=== PATIENT | female | born 1995 | race African-American/Black ===

== ENCOUNTER 2019-09-07 21:49 | Emergency (ER) | payer SELFPAY ==
[2019-09-07 22:10] VITALS: BP 124/71; BMI 28.6
[2019-09-08] MEDS ORDERED: ACETAMINOPHEN 1000 MG/100 ML VIAL (NON FORMULARY) IVPB ONE (00:01)
[2019-09-08] MEDS ORDERED: SODIUM CHLORIDE 0.9% 500 ML INFUS.BAG IV ONE (00:01)
--- NOTE | 2019-09-08 00:02 | PDOC ---
History of Present Illness - General Chief Complaint: Respiratory Stated Complaint: FEVER Time Seen by Provider: 09/07/19 23:57 - History of Present Illness Initial Comments: Ms. Rehman is a 23 y/o female with no significant PMH presenting today with subjective fever that started yesterday. Reports nausea w/o vomiting. Tried advil with mild relief. Reports associated upper extremity muscle aches. No cough. No sore throat. No chest pain/shortness of breath. No abdominal pain. No dysuria. no diarrhea. Denies sick contacts. Denies headache. Past History - Past Medical History Allergies/Adverse Reactions: Allergies Allergy/AdvReac Type Severity Reaction Status Date / Time No Known Allergies Allergy Verified 09/07/19 22:10 Home Medications: Ambulatory Orders NK [No Known Home Medication] 09/07/19 COPD: No - Psycho Social/Smoking Cessation Hx Smoking History: Never smoked Have you smoked in the past 12 months: No Information on smoking cessation initiated: No Hx Alcohol Use: No Drug/Substance Use Hx: No Review of Systems - Review of Systems Comments:: GENERAL/CONSTITUTIONAL: Reports fever. No weakness._ HEAD, EYES, EARS, NOSE AND THROAT: No change in vision. No change in hearing. No sore throat._ CARDIOVASCULAR: No chest pain or shortness of breath_ RESPIRATORY: Denies cough, hemoptysis_ GASTROINTESTINAL: Reports nausea. No vomiting, diarrhea or constipation._ GENITOURINARY: No dysuria, frequency, or change in urination._ MUSCULOSKELETAL: Reports upper extremity muscle aches. No neck or back pain._ SKIN: No rash_ NEUROLOGIC: No headache, vertigo, loss of consciousness, or change in strength/ sensation._ ENDOCRINE: No increased thirst. No abnormal weight change_ HEMATOLOGIC/LYMPHATIC: No anemia, easy bleeding, or history of blood clots._ ALLERGIC/IMMUNOLOGIC: No hives or skin allergy._ *Physical Exam - Vital Signs Last Vital Signs Temp Pulse Resp BP Pulse Ox 100.4 F H 98 H 17 124/71 100 09/07/19 22:08 09/07/19 22:08 09/07/19 22:08 09/07/19 22:08 09/07/19 22:08 - Physical Exam GENERAL: Awake, alert, and oriented to person/place/time, in no acute distress_ HEAD: No signs of trauma, normoc ephalic, atraumatic _ EYES: PERRLA, EOMI, sclera anicteric, conjunctiva clear_ ENT: Hearing grossly normal, nares patent, oropharynx clear without exudates. No uvular deviation. Moist mucosa. NECK: Normal ROM, supple, no lymphadenopathy, JVD, or masses_ LUNGS: No distress, speaks in full sentences, clear to auscultation bilaterally _ HEART: Regular rate and rhythm, normal S1 and S2, no murmurs appreciated, peripheral pulses normal and equal bilaterally._ ABDOMEN: Soft, nontender, normoactive bowel sounds. No guarding, no rebound. No masses_ EXTREMITIES: Normal inspection, Normal range of motion, no edema. No clubbing or cyanosis_ NEUROLOGICAL: Cranial nerves II through XII grossly intact. Normal speech, normal gait, no focal sensorimotor deficits _ SKIN: Warm, Dry, normal turgor, no rashes or lesions noted_ ED Treatment Course - LABORATORY CBC & Chemistry Diagram: 09/08/19 00:30 09/08/19 00:30 Medical Decision Making - Medical Decision Making 09/08/19 00:09 23F no reported pmh presenting with fever x2 days. Tried advil at home with minimal relief. -cbc,cmp -cxr -fluids, tylenol -flu swab 09/08/19 01:28 CXR shows no acute intra thoracic pathology. 09/08/19 03:55 Pt reassessed. Reports improvement with fluids and tylenol. Labs reviewed. UA reviewed. Plan to d/c home with Tylenol and PO fluids. All questions answered. Return precautions given. Pt verbalized understanding and agreement with plan. Laboratory Tests 09/08/19 09/08/19 09/08/19 00:22 00:30 00:30 WBC 9.3 RBC 5.25 H Hgb 15.3 Hct 44.3 MCV 84.3 MCH 29.2 MCHC 34.6 RDW 13.3 Plt Count 174 MPV 9.5 Absolute Neuts (auto) 7.1 Neutrophils % 75.6 Lymphocytes % 18.1 Monocytes % 4.9 Eosinophils % 1.2 Basophils % 0.2 Nucleated RBC % 0 Sodium 136 Potassium 4.4 Chloride 103 Carbon Dioxide 26 Anion Gap 7 L BUN 13.0 Creatinine 0.7 Est GFR (CKD-EPI)AfAm 143.54 Est GFR (CKD-EPI)NonAf 123.85 Random Glucose 98 Calcium 9.6 Total Bilirubin 0.7 AST 35 ALT 48 Alkaline Phosphatase 75 Total Protein 7.7 Albumin 3.6 Urine Color Urine Appearance Urine pH Ur Specific [place] Urine Protein Urine Glucose (UA) Urine Ketones Urine Blood Urine Nitrite Urine Bilirubin Urine Urobilinogen Ur Leukocyte Esterase Influenza A (Rapid) Negative Influenza B (Rapid) Negative 09/08/19 03:27 WBC RBC Hgb Hct MCV MCH MCHC RDW Plt Count MPV Absolute Neuts (auto) Neutrophils % Lymphocytes % Monocytes % Eosinophils % Basophils % Nucleated RBC % Sodium Potassium Chloride Carbon Dioxide Anion Gap BUN Creatinine Est GFR (CKD-EPI)AfAm Est GFR (CKD-EPI)NonAf Random Glucose Calcium Total Bilirubin AST ALT Alkaline Phosphatase Total Protein Albumin Urine Color Yellow Urine Appearance Clear Urine pH 5.5 Ur Specific [place] 1.026 Urine Protein Negative Urine Glucose (UA) Negative Urine Ketones Negative Urine Blood Negative Urine Nitrite Negative Urine Bilirubin Negative Urine Urobilinogen 1.0 Ur Leukocyte Esterase Negative Influenza A (Rapid) Influenza B (Rapid) Discharge - Discharge Information Problems reviewed: Yes Clinical Impression/Diagnosis: Fever Condition: Stable Disposition: HOME - Admission No - Follow up/Referral - Patient Discharge Instructions Patient Printed Discharge Instructions: DI for Fever (Symptom) -- Adult Additional Instructions: Please take Tylenol as needed for fever control. Please keep yourself hydrated with oral fluids. If you experience any new, worsening, or concerning symptoms, please return to the emergency room. - Post Discharge Activity
[2019-09-08] MEDS ORDERED: ACETAMINOPHEN INJECTION 100 ML IVPB ONE (00:15)
--- NOTE | 2019-09-08 00:21 | PDOC ---
Attending Attestation - Resident Resident Name: Sarah Montanahan - ED Attending Attestation I have performed the following: I have examined & evaluated the patient, The case was reviewed & discussed with the resident, I agree w/resident's findings & plan - HPI HPI: 09/08/19 02:41 see resident hpi - Physicial Exam PE: 09/08/19 02:42 see resident exam - Medical Decision Making 09/08/19 03:53 Well-appearing 23-year-old female with body aches and fevers Work-up in the emergency department essentially negative Will DC with recommended primary care follow-up
[2019-09-08 01:25] LABS: BASO % 0.2 % (0-2.0); EOS % 1.2 % (0-4.5); HEMATOCRIT 44.3 % (32.4-45.2); HEMOGLOBIN 15.3 GM/dL (10.7-15.3); LYMPH % 18.1 % (8-40); MCH 29.2 pg (25.7-33.7); MCHC 34.6 g/dl (32.0-36.0); MEAN CELL VOLUME 84.3 fl (80-96); MEAN PLT VOLUME 9.5 fl (7.5-11.1); MONO % 4.9 % (3.8-10.2); NEUT % 75.6 % (42.8-82.8); PLATELET COUNT 174 K/MM3 (134-434); RBC 5.25 M/mm3 (3.60-5.2); RDW 13.3 % (11.6-15.6); WHITE BLOOD COUNT 9.3 K/mm3 (4.0-10.0)
[2019-09-08 02:27] LABS: ALBUMIN 3.6 g/dl (3.4-5.0); BILIRUBIN,TOTAL 0.7 mg/dL (0.2-1); CALCIUM 9.6 mg/dL (8.5-10.1); CREATININE 0.7 mg/dL (0.55-1.3); POTASSIUM 4.4 mmol/L (3.5-5.1); TOT PROT 7.7 g/dl (6.4-8.2)
[2019-09-08 03:51] LABS: PH,URINE 5.5 (5.0-8.0); URINE APPEARANCE CLEAR; URINE BILIRUBIN NEGATIVE (NEGATIVE); URINE COLOR YELLOW; URINE GLUCOSE (UA) NEGATIVE (NEGATIVE); URINE KETONE NEGATIVE (NEGATIVE); URINE LEUK ESTERASE NEGATIVE (NEGATIVE); URINE NITRITE NEGATIVE (NEGATIVE); URINE PROTEIN NEGATIVE (NEGATIVE)
[2019-09-08 04:19] VITALS: PULSE 87; TEMP 98.4
== END 2019-09-08 04:19 | disposition home or self-care (01) ==
LOC: JER 21:49
PROC: 3E033NZ Introduction of Analgesics, Hypnotics, Sedatives into Peripheral Vein, Percutaneous Approach (ICD-10-PCS; principal; 2019-09-07)
DX: R50.9 Fever, unspecified (principal)
CPT/HCPCS: 36415; 71045-TC-FY; 80053; 81003; 85025; 87086; 87804; 99282-25; J0131